=== PATIENT | male | born 1975 | race Caucasian/White ===

== ENCOUNTER 2022-09-05 15:22 | Emergency (ER) | payer BC, MEDICAID ==
[2022-09-05 15:51] VITALS: BP 136/83; PULSE 56
[2022-09-05 16:10] LABS: PTT,PARTIAL THROMBOPLSTIN TIME 25.8 SEC (22.0-34.0)
[2022-09-05 16:16] LABS: ANION GAP 13.3 mEq/L (7-13); CHLORIDE,CL 106 mmol/L (98-107); SODIUM,NA 141 mmol/L (136-145)
[2022-09-05 16:18] LABS: ESTIMATED GFR 80 mL/min (>=60)
[2022-09-05] MEDS: Sodium Chloride 0.9% 10 ML Syringe FLUSH PRN (16:38)
[2022-09-05] MEDS: Ketorolac 30 MG/ML SDV IVPUSH ONE (16:39)
== END 2022-09-05 16:57 | disposition home or self-care (01) ==
LOC: DL.ED 15:22
DX: R07.89 Other chest pain (principal)
CPT/HCPCS: 36415; 71045; 80053; 83605; 83735; 84145; 84484; 85025; 85610; 85730; 86140; 93005; 93010; 96374; 99284; 99285-25; J1885; J3490